=== PATIENT | female | born 1955 | race Two or more races ===

== ENCOUNTER 2019-09-29 14:54 | Outpatient (CLI) | payer OTHER | END 2019-09-29 14:55 | disposition home or self-care (01) | LOC: SONOGRAMA 14:54 | DX: M75.52 Bursitis of left shoulder (principal); M75.32 Calcific tendinitis of left shoulder ==

== ENCOUNTER 2019-10-20 12:11 | Outpatient (CLI) | payer OTHER | END 2019-10-20 14:12 | disposition home or self-care (01) | LOC: RAD 12:11 | DX: M47.892 Other spondylosis, cervical region (principal); M50.30 Other cervical disc degeneration, unspecified cervical region ==

== ENCOUNTER 2020-09-11 | Outpatient (CLI) | payer OTHER | END 2020-09-11 11:11 | disposition home or self-care (01) | LOC: PPH VACUNA | PROVIDERS: ATTEND Emergency Medicine Pediatric Emergency Medicine | DX: Z23 Encounter for immunization (principal) ==

== ENCOUNTER 2020-10-02 10:06 | Outpatient (CLI) | payer OTHER | END 2020-10-02 18:00 | disposition home or self-care (01) | LOC: PPH VACUNA 10:06 | PROVIDERS: ATTEND Emergency Medicine Pediatric Emergency Medicine | DX: Z23 Encounter for immunization (principal) ==

== ENCOUNTER 2021-04-11 11:12 | Outpatient (CLI) | payer OTHER | END 2021-04-11 11:21 | disposition home or self-care (01) | LOC: RAD 11:12 | DX: M47.896 Other spondylosis, lumbar region (principal); M51.36 Other intervertebral disc degeneration, lumbar region ==

== ENCOUNTER 2021-06-12 08:00 | Outpatient (CLI) | payer OTHER | END 2021-06-12 08:30 | disposition home or self-care (01) | LOC: PPH VACUNA 08:00 | PROVIDERS: ATTEND Emergency Medicine Pediatric Emergency Medicine | DX: Z23 Encounter for immunization (principal) ==

== ENCOUNTER 2023-07-16 12:45 | Outpatient (CLI) | payer OTHER | END 2023-07-16 12:47 | disposition home or self-care (01) | LOC: NUCLEAR 12:45 | PROVIDERS: ATTEND Family Medicine Geriatric Medicine | DX: M81.0 Age-related osteoporosis without current pathological fracture (principal) ==